=== PATIENT | female | born 1985 | race Caucasian/White ===

== ENCOUNTER 2016-10-27 12:45 | Outpatient (CLI) ==
--- NOTE | 2016-10-27 13:28 | DI ---
EXAM: Right ankle, three views HISTORY: Joint pain COMPARISON: None. FINDINGS: The alignment is normal. Joint spaces appear normal. No fracture is identified. IMPRESSION: No fracture or dislocation is identified. No erosion or localized abnormality bone. M ild soft tissue swelling seen anterior lateral aspect of the ankle.. No calcaneal spur..
--- NOTE | 2016-10-27 13:32 | DI ---
EXAM: Left ankle, three view. HISTORY: Pain. COMPARISON: None. FINDINGS: Three views of the left ankle were obtained. Alignment is normal. Ankle mortise is unif orm. No fracture is seen. Moderate soft tissue swelling is seen . No calcaneal spur IMPRESSION: Alignment is normal without fracture. No erosion or localized abnormality bone is seen Moderate soft tissue swelling is seen anterior lateral aspect of ankle
--- NOTE | 2016-10-27 13:40 | DI ---
EXAM: Right wrist, three views HISTORY: And COMPARISON: None. FINDINGS: The alignment is normal. Joint spaces appear normal. No fracture is identified. IMPRESSION: No fracture or dislocation is identified. No chondrocalcinosis. No erosion or localiz ed abnormality bone. Minimal soft tissue prominence/swelling anterior aspect of wrist.
--- NOTE | 2016-10-27 13:44 | DI ---
EXAM: Right hand, three views HISTORY: Pain COMPARISON: None. FINDINGS: The alignment is normal. There is minimal narrowing the first metacarpal phalangeal join t No fracture is identified. No chondrocalcinosis. No erosion or localized abnormality bone IMPRESSION: No fracture or dislocation is identified. No erosion or destructive change of bone. Minimal narrowing first metacarpal phalangeal joint Mild soft tissue swelling seen level of the PIP joints of the second through fourth digits.
--- NOTE | 2016-10-27 13:45 | DI ---
EXAM: Left hand, three views HISTORY: Pain COMPARISON: None. FINDINGS: The alignment is normal. There is minimal narrowing the first metacarpal phalangeal join t. No erosion or localized destructive change of bone. No chondrocalcinosis. No fracture is ident ified. IMPRESSION: No fracture or dislocation is identified. Minimal narrowing first metacarpal phalangeal joint Minimal swelling seen at the level the PIP joint of the second, third and fourth digit
--- NOTE | 2016-10-27 13:51 | DI ---
EXAM: Left wrist, three views HISTORY: Pain COMPARISON: None. FINDINGS: The alignment is normal. Joint spaces appear normal. No fracture is identified. No cho ndrocalcinosis. No erosion or localized abnormality bone. IMPRESSION: No fracture or dislocation is identified. Joint spaces normal. Minimal soft tissue prominence/swelling anterior and posterior aspect of wrist.
== END 2016-10-27 12:46 | disposition home or self-care (01) ==
LOC: RAD 12:45
PROVIDERS: ATTEND Physician Assistant
DX: M25.50 Pain in unspecified joint (principal)

== ENCOUNTER 2016-12-01 08:25 | Outpatient (CLI) ==
[2016-12-01 08:43] LABS: BASOPHILS # (AUTO) 0.1 K/uL (0-0.2); BASOPHILS % (AUTO) 0.8 % (0.0-3.0); EOSINOPHILS # (AUTO) 0.2 K/ul (0.0-0.7); EOSINOPHILS % (AUTO) 3.1 % (0.0-7.0); HEMATOCRIT 40.2 % (37.0-47.0); HEMOGLOBIN 14.1 g/dl (12.0-16.0); IMMATURE GRANULOCYTE % (AUTO) 0.4 % (0.0-5.0); LYMPHOCYTES # (AUTO) 2.5 K/uL (0.60-3.4); LYMPHOCYTES % (AUTO) 34.1 (10.0-50.0); MEAN CORPUSCULAR HEMOGLOBIN 29.1 pg (27.0-31.0); MEAN CORPUSCULAR HGB CONC 35.1 (31.8-35.4); MEAN CORPUSCULAR VOLUME 83.1 fl (81.0-99.0); MONOCYTES # (AUTO) 0.4 K/uL (0.4-2.0); MONOCYTES % (AUTO) 4.7 (0-10); NEUTROPHILS # (AUTO) 4.2 K/ul (2.0-6.9); NEUTROPHILS % (AUTO) 56.9; PLATELET COUNT 236 10^3/uL (140-440); RED BLOOD COUNT 4.84 10^6/ul (4.20-5.40); WHITE BLOOD COUNT 7.44 K/ul (4.6-10.2)
[2016-12-01 09:03] LABS: ALBUMIN 4.3 g/dL (3.4-5.0); ALBUMIN/GLOBULIN RATIO 1.48; ANION GAP 13.9; BILIRUBIN,TOTAL 0.4 mg/dL (0.00-1.20); BUN/CREATININE RATIO 18.6; CALCIUM 9.6 mg/dL (8.2-10.2); CREATININE 0.86 mg/dL (0.60-1.30); POTASSIUM 3.9 mmol/L (3.5-5.10); TOTAL PROTEIN 7.2 g/dL (6.4-8.2)
[2016-12-01 09:25] LABS: ESR INTERNAL QC INTERNAL QC VALID
[2016-12-01 16:07] LABS: ERYTHROCYTE SEDIMENTATION RATE 6 mm/hr (0-20)
[2016-12-02 07:19] LABS: C-REACTIVE PROTEIN 0.5 mg/L (0.0-4.9)
== END 2016-12-01 08:26 | disposition home or self-care (01) ==
LOC: LAB 08:25
PROVIDERS: ATTEND Internal Medicine Rheumatology
DX: M25.50 Pain in unspecified joint (principal); R53.83 Other fatigue; R76.0 Raised antibody titer
CPT/HCPCS: 36415; 80053; 80074; 85025; 85651; 86038; 86140; 86200

== ENCOUNTER 2017-05-04 12:46 | Outpatient (CLI) ==
--- NOTE | 2017-05-04 13:23 | DI ---
EXAM: Two views of the chest. History: Chest pain. Findings: Heart size is normal. No focal consolidation. No appreciable pleural fluid and no pneumot horax. No acute osseous abnormalities. Impression: No acute cardiopulmonary process
--- NOTE | 2017-05-04 13:41 | DI ---
Examination: Three views of the left foot. HISTORY: Pain. COMPARISON: None. FINDINGS: No acute fracture or dislocation. No radiopaque foreign bodies or subcutaneous emphysema. No osseous lesions. IMPRESSION: IMPRESSION: No significant radiographic abnormality. No acute fracture or dislocation is seen.
--- NOTE | 2017-05-04 13:41 | DI ---
EXAM: Three views of the right foot. History: Right foot pain. Findings: No acute fracture or dislocation. No abnormal calcifications or radiopaque foreign bodies . Joint spaces are preserved. Incidental os naviculare Impression: Unremarkable exam
== END 2017-05-04 12:47 | disposition home or self-care (01) ==
LOC: RAD 12:46
PROVIDERS: ATTEND Physician Assistant
DX: R07.89 Other chest pain (principal); M79.672 Pain in left foot; M79.671 Pain in right foot

== ENCOUNTER 2017-09-11 10:49 | Outpatient (CLI) | END 2017-09-11 10:50 | disposition home or self-care (01) | LOC: LAB 10:49 | PROVIDERS: ATTEND Physician Assistant | DX: R11.2 Nausea with vomiting, unspecified (principal); R53.83 Other fatigue | CPT/HCPCS: 36415; 80053; 81001; 82150; 83690; 85025; 86308; 86663; 87086 ==

== ENCOUNTER 2017-11-27 11:40 | Outpatient (CLI) ==
--- NOTE | 2017-11-27 13:02 | DI ---
EXAM: Thoracic spine radiographs. HISTORY: Back pain. COMPARISON: Of the chest radiograph 05/04/2017. TECHNIQUE: Frontal, lateral and swimmer's views. FINDINGS: The normal curvature and alignment are maintained. Vertebral body and intervertebral disc heights are normal. No fracture or subluxation seen. Adjacent soft tissues are unremarkable. Sinc e the prior study, there has been no significant interval change. IMPRESSION: No acute abnormality of the thoracic spine.
== END 2017-11-27 11:41 | disposition home or self-care (01) ==
LOC: RAD 11:40
PROVIDERS: ATTEND Physician Assistant
DX: R05 Cough (principal); M54.6 Pain in thoracic spine

== ENCOUNTER 2018-05-07 12:37 | Outpatient (CLI) ==
--- NOTE | 2018-05-07 13:00 | DI ---
Exam: Three views of the right shoulder. Comparison: None available. Reason for exam: Right shoulder pain. FINDINGS: No acute fracture or malalignment. The joint spaces appear well maintained. No unexplain ed calcific soft tissue density or radiopaque retained foreign body. Impression: No acute fracture or malalignment in the right shoulder
== END 2018-05-07 12:38 | disposition home or self-care (01) ==
LOC: RAD 12:37
PROVIDERS: ATTEND Nurse Practitioner Family
DX: M25.511 Pain in right shoulder (principal)